=== PATIENT | male | born 1955 | race Caucasian/White ===

== ENCOUNTER 2023-12-25 12:06 | Emergency (ER) | payer MEDICARE, BC, SELFPAY ==
[2023-12-25 12:18] VITALS: BP 149/98
[2023-12-25 12:28] VITALS: BMI 32.9
[2023-12-25 13:23] LABS: % Basophils 0.4 % (0-2); % Eosinophils 1.5 % (0-6); % Immature Granulocytes 0.4 % (0-0.5); % Lymphocytes 17.6 % (20.5-51.1); % Monocytes 9.3 % (1.7-9.3); % Neutrophils 70.8 % (42.2-75.2); Absolute Eosinophils 0.1 10^3/uL (0-0.7); Absolute Lymphocytes 1.2 10^3/uL (1.2-3.4); Absolute Monocytes 0.6 10^3/uL (0.1-0.6); Absolute Neutrophils 4.7 10^3/uL (1.4-6.5); Hematocrit 40.6 % (39.0-52.0); Hemoglobin 14.4 g/dL (13.0-18.0); Mean Corp Hgb Conc. 35.5 g/dL (33.0-37.0); Mean Corpuscular Volume 87.3 fL (80.0-94.0); Mean Platelet Volume 10.5 fL (7.4-10.4); Nucleated Red Blood Cells % 0 % (-); Platelet Count 237 10^3/uL (130-400); Red Blood Cell Count 4.65 10^6/uL (4.70-6.10); Red Cell Dist. Width 12.7 % (11.5-14.5); White Blood Cell Count 6.7 10^3/uL (4.8-10.8)
[2023-12-25 13:29] LABS: ALT (SGPT) 23 U/L (0-50); AST (SGOT) 29 U/L (17-59); Albumin 4.6 g/dl (3.5-5.0); Alkaline Phosphatase 54 U/L (38-126); Blood Urea Nitrogen 19 mg/dl (9-20); Calcium 9.5 mg/dl (8.4-10.2); Carbon Dioxide 26 mmol/L (22-30); Chloride 103 mmol/L (98-107); Estimated Creatinine Clearance 93 ml/min; Glucose 101 mg/dl (70-99); Potassium 4.6 mmol/L (3.5-5.1); Sodium 140 mmol/L (135-145); Total Bilirubin 1.1 mg/dl (0.2-1.3); Total Protein 6.9 g/dl (6.3-8.2); eGFR > 60.00
[2023-12-25 13:40] LABS: Troponin I < 0.012 ng/ml
--- NOTE | 2023-12-25 14:50 | ED.GENMED ---
Addendum entered and electronically signed by Jayden Henriquez PA-C 12/29/23 14:54:
Lyme test presumptively positive. Spoke with patient and sent prescription for doxycycline 100 mg twice a day to his pharmacy. Advised to follow-up with family doctor
Original Note:
History of Present Illness
General
Chief Complaint: Musculo-Skeletal Complaint
Time Seen by Provider: 12/25/23 12:41
History of Present Illness
History of Present Illness:
68-year-old male with history of hypertension presents to the emergency department for evaluation of occipital headache, left shoulder discomfort, and bilateral jaw pain ongoing for the past 6 days. The symptoms are constant, they do not wax and
wane, there is no exertional positional component to them. He denies any increased jaw pain with chewing or swallowing. No objective fevers and no URI symptoms. Has no chest pain or shortness of breath. No ill contacts. Denies any known tick
bites [place]. No recent international travel.
Past History
Past History
ED Past Medical History: HTN and Hypercholesterolemia
Social History
Tobacco: Non-smoker
Alcohol: Daily
Personal:
Living: with family
Employment: Employed
Review of Systems
Review of Systems
Allergies reviewed?: Yes
All Other Systems: ROS reviewed and negative except as documented in HPI and ROS
Phy Exam
Physical Exam
Physical Exam:
GEN: Well appearing, NAD, WDWN
Eyes: PERRLA, EOMs intact, no scleral icterus
HENT: NCAT, oral mucosa moist, no JVD, no cervical adenopathy. No reproducible tenderness to anterior posterior neck musculature. Negative Kernig's and presents keys
Lungs: CTAB, no wheezes, rales, rhonchi, normal chest wall excursion
Cardiac: RRR, no M/R/G, no peripheral edema. Radial pulses 2+ bilat
Neuro: AO x 3, cranial nerves II through XII grossly intact, no focal deficits to BUE/BLE, normal sensation throughout
MSK: No gross deformity or ecchymosis. No edema. No digital clubbing
Skin: No rashes, petechiae. Normal color, no pallor or jaundice.
Psych: Calm, cooperative, proper hygiene
Course
Orders/Labs/Results
Orders:
Orders
12/25/23 12:21
ECG [Electrocardiogram (*1)] Urgent
Reason for Study: Chest Pain
EKG- Treatment ONCE
12/25/23 12:54
CT Head W/o Iv Contrast Urgent
Comment:
Reason For Exam: new headache
12/25/23 13:08
Complete Blood Count/With Diff Urgent
Comprehensive Metabolic Panel Urgent
Lyme Progressive Urgent
Comment: ADD ON
Troponin I Urgent
12/25/23 14:33
Add On- LAB Urgent
Tests Added?: Lyme Progressive
12/25/23 14:51
Ketorolac [Toradol] 30 mg IM NOW STA
Abnormal Lab Results
12/25/23
13:08
RBC 4.65 L 10^6/uL
(4.70-6.10)
MPV 10.5 H fL
(7.4-10.4)
Lymphocytes % 17.6 L %
(20.5-51.1)
Glucose 101 H mg/dl
(70-99)
12/25/23 13:08
12/25/23 13:08
Vital Signs
Initial and Last Documented VS:
Initial Vital Signs
Pulse Resp BP Pulse Ox
64 18 149/98 97
12/25/23 12:18 12/25/23 12:18 12/25/23 12:18 12/25/23 12:18
Last Documented Vital Signs
Pulse Resp BP Pulse Ox
64 18 149/98 97
12/25/23 12:18 12/25/23 12:18 12/25/23 12:18 12/25/23 12:18
MDM/Problems Addressed
MDM/Problems Addressed:
Patient's EKG is nonischemic and cardiac troponins are negative. Labs are otherwise unrevealing of any acute pathology. He is afebrile and not meningitic. CT of the head was obtained due to persistence of the headache and this was negative. Do
not see any indication for lumbar puncture at this time. Lyme disease test pending, did not start antibiotic therapy as I have a low suspicion. Recommend primary care follow-up. He has no jaw claudication to suggest giant cell arteritis
*Critical Care Note
Total Time (30-74mins, 75-104mins- exclusive of procedures): Not Applicable
ED Attending Note
-
Portions of this chart may have been created with voice recognition software.� Occasional wrong word or��sound alike� substitutions may have occurred due to the inherent limitations of voice recognition software.
Discharge Plan
Departure
Patient Disposition: Home (Routine Discharge)
Date of Disposition: 12/25/23
Time of Disposition: 14:50
Patient with high blood pressure during this ER visit?: No
Discharge Problem:
Myalgia, Jaw pain
Prescriptions:
New
mtfleyppfs-dmwjqhbmoswkr-tygr [Fioricet] 50-300-40 mg capsule
1 cap PO Q8H PRN (Reason: headache) Qty: 15 0RF
No Action
multivitamin [Daily Multiple] 1 EACH tablet
1 ea PO DAILY
alpha lipoic acid [Lipoic Acid] 150 MG capsule
150 - 300 mg PO DAILY
zinc 15 MG tablet
15 - 30 mg PO DAILY
fexofenadine [Sol] 180 MG tablet
180 mg PO DAILY
chromium 200 MCG tablet
250 - 500 mcg PO DAILY
finasteride [Propecia] 1 MG tablet
1 mg PO DAILY
amoxicillin-pot clavulanate 1 TABLET tablet
1 tab PO Q12
docosahexaenoic acid-epa 1 CAP capsule
3 cap PO DAILY
nebivolol [Bystolic] 5 MG tablet
5 mg PO DAILY
cholecalciferol (vitamin D3) [Vitamin D3] 2,000 UNIT capsule
2,000 unit PO DAILY
Meloxicam
1 tab PO DAILY
Pgx
2 tab PO DAILY
Referrals:
Itz Nguyen DO [Family Provider] -
Activity Restrictions/Additional Instructions:
The cause of your symptoms is not clear at this time
Your blood work in the emergency department was unremarkable and your CAT scan showed no brain abnormalities
A Lyme disease test is in process and will take approximately 3 to 4 days, if this is positive we will call you and start antibiotics
Please follow-up with your primary care physician if symptoms have not improved in the next 3 to 5 days
Interventions
Interventions:
*Risk Screen - Suicide Last Done: 12/25/23 12:06
*General Assessment Last Done: 12/25/23 14:13
*Neglect/Abuse Screening Last Done: 12/25/23 14:13
ED- Fall Risk Assessment Last Done: 12/25/23 14:13
*ED COVID-19 Vaccine History Last Done: 12/25/23 14:13
*Nursing Disposition Last Done: 12/25/23 15:00
ED-Musculoskeletal Assessment Last Done: 12/25/23 14:13
Discharge Date and Time
Discharge Date/Time: 12/25/23 15:00
Print Language: ROMANIAN
[2023-12-25] MEDS: TORADOL 30 MG IM (14:57)
[2023-12-28 15:39] LABS: Lyme Antibody Screen, EIA Presump. Positive (Negative)
[2023-12-31 18:05] LABS: Lyme Ab Western Blot IgG Positive (Negative); Lyme Ab Western Blot IgM Negative (Negative)
== END 2023-12-25 15:00 | disposition home or self-care (01) ==
LOC: EMR 12:06
PROVIDERS: Physician Assistant; EMERGENCY PHYSICIAN Student in an Organized Health Care Education/Training Program; FAMILY PHYSICIAN Family Medicine
DX: M79.10 Myalgia, unspecified site (principal); R68.84 Jaw pain; R51.9 Headache, unspecified; M25.512 Pain in left shoulder; I10 Essential (primary) hypertension; E78.00 Pure hypercholesterolemia, unspecified
CPT/HCPCS: 99284; 96372; 70450; 80053; 84484; 85025; 86617; 86618; 93005

== ENCOUNTER → 2024-04-17 12:04 | Outpatient (REF) | payer MEDICARE, BC, SELFPAY | LOC: DHCBC/DCA 12:04 | PROVIDERS: ATTENDING PHYSICIAN Internal Medicine Cardiovascular Disease; FAMILY PHYSICIAN Family Medicine | DX: I10 Essential (primary) hypertension (principal); R93.1 Abnormal findings on diagnostic imaging of heart and coronary circulation; E78.00 Pure hypercholesterolemia, unspecified; I71.40 Abdominal aortic aneurysm, without rupture, unspecified | CPT/HCPCS: 78452; 93017; A9500 ==

== ENCOUNTER → 2024-04-18 18:03 | Outpatient (REF) | payer MEDICARE, BC, SELFPAY | LOC: MRI 3T 18:03 | PROVIDERS: ATTENDING PHYSICIAN Surgery; FAMILY PHYSICIAN Family Medicine | DX: R97.20 Elevated prostate specific antigen [PSA] (principal) | CPT/HCPCS: 72197; A9575 ==

== ENCOUNTER → 2024-04-22 15:04 | Outpatient (REF) | payer MEDICARE, BC, SELFPAY | LOC: RCS 15:04 | PROVIDERS: ATTENDING PHYSICIAN Internal Medicine Cardiovascular Disease; FAMILY PHYSICIAN Family Medicine | DX: I10 Essential (primary) hypertension (principal); R93.1 Abnormal findings on diagnostic imaging of heart and coronary circulation; E78.00 Pure hypercholesterolemia, unspecified; I71.40 Abdominal aortic aneurysm, without rupture, unspecified; I51.7 Cardiomegaly; E78.2 Mixed hyperlipidemia; R73.09 Other abnormal glucose | CPT/HCPCS: 93306 ==

== ENCOUNTER 2025-01-23 06:26 | Day surgery (SDC) | payer MEDICARE, BC, SELFPAY | END 2025-01-23 11:20 | disposition home or self-care (01) | LOC: GI 06:26 | PROVIDERS: ATTENDING PHYSICIAN Internal Medicine Gastroenterology | DX: Z12.11 Encounter for screening for malignant neoplasm of colon (principal); D12.3 Benign neoplasm of transverse colon; D12.4 Benign neoplasm of descending colon; K57.30 Diverticulosis of large intestine without perforation or abscess without bleeding; Z86.0100 Personal history of colon polyps, unspecified; K64.8 Other hemorrhoids | CPT/HCPCS: 45385; 45380; 88305 ==